=== PATIENT | female | born 1960 | race Caucasian/White ===

== ENCOUNTER 2017-08-18 16:58 | Emergency (ER) | payer BC ==
[~2017-08-18 16:58] MED LIST: ATORVASTATIN CA10 MG PO; CARBIDOPA-LEVO1 EAC7 PO; ENTACAPONE200 MG PO; FEOSOL325 MG PO; NAPROSYN500 MG PO; NOHOMEMEDS; PREVACID15 MG PO; TRIHEXYPHENIDYL2 MG PO; ZESTORETIC 20-1 EAC1 PO; ZYRTEC10 M3 PO
== END 2017-08-18 17:10 | disposition left against medical advice (07) ==
LOC: EME 16:58
DX: M25.562 Pain in left knee (principal); R26.9 Unspecified abnormalities of gait and mobility; Z53.21 Procedure and treatment not carried out due to patient leaving prior to being seen by health care provider